=== PATIENT | female | born 1990 | race African-American/Black ===

== ENCOUNTER 2024-11-20 18:06 | Emergency (ER) | payer SELFPAY ==
[~2024-11-20] VITALS: Ht 160 cm; Wt 62.1 kg
[2024-11-20 18:24] VITALS: TEMP 36.8; O2SAT 99
[2024-11-20 19:48] VITALS: BP 132/96; PULSE 103; RESP 16
[2024-11-20] MEDS: TRAMADOL HCL/ACETAMINOPHEN 37.5/325MG TABLET PO ONE (19:48)
[2024-11-20] MEDS ORDERED: TRAM-534 MT (20:47)
== END 2024-11-20 21:07 | disposition home or self-care (01) ==
LOC: ER 18:06
DX: S02.2XXA Fracture of nasal bones, initial encounter for closed fracture (principal); V49.9XXA Car occupant (driver) (passenger) injured in unspecified traffic accident, initial encounter; Y93.89 Activity, other specified; Y92.89 Other specified places as the place of occurrence of the external cause; Y99.8 Other external cause status
CPT/HCPCS: 70160; 99283; Z7610 ×2; A4606